=== PATIENT | female | born 1935 | race Caucasian/White ===

== ENCOUNTER 2017-07-29 18:20 | Inpatient (IN) ==
[2017-07-29 19:59] LABS: MANUAL DIFF NEEDED? NO
[2017-07-29 20:07] LABS: BASO% 0.5 % (0.0-0.8); EOS# 0.15 X1000 (0.0-0.7); EOS% 2.3 % (0.0-10.0); HEMATOCRIT 32.5 % (37.0-47.0); IMM GRAN# 0.02 X1000 (0.0-0.04); IMM GRAN% 0.3 % (0.0-0.5); LYMPH# 2.31 X1000 (1.2-3.4); LYMPH% 35.9 % (20.5-51.1); MCH 31.2 PG (27-31); MCHC 33.8 g/dL (33-37); MCV 92.1 FL (81-99); MONO# 0.48 X1000 (0.11-0.59); MONO% 7.5 % (1.7-9.3); MPV 10.2 FL (7.4-10.4); NEUT% 53.5 % (42.2-75.2); PLT 221 X1000 (130-400); RBC 3.53 XMIL (4.2-5.4)
--- NOTE | 2017-07-29 20:07 | PROVIDER DOCUMENTATION ---
HPI-Musculoskeletal Pain/Inj - GENERAL Chief Complaint: Fall Stated Complaint: FALL, LEFT HIP PAIN Time Seen by Provider: 07/29/17 19:33 Source: family - HX OF PRESENT ILLNESS-MUSKULOSKELTAL Nature of Presenting Problem: Earlier this afternoon, prior to arrival, pt was in a friends house helping them to take the trash out, pt tripped and fell to the ground landing on her left hip and the trash can landed on top of her. family attempted to get her up but was unable to do so, EMS was called. Pt c/o pain on her left hip only when she moves Quality of Pain: reports: aching Severity in ED: severe Onset/Duration: just prior to arrival Timing: still present Modifying Factors: improves with: movement Locality of Occurance: Other (friend's house) Similar Symptoms Previously?: No - FALL INJURY Location of Pain/Injury: reports: pelvis Pain Radiation: reports: no radiation Reason for Fall: reports: tripped Symptoms prior to fall:: reports: none Loss of Consciousness: no loss of consciousness Injury Associated Symptoms: reports: trouble walking Review of Systems - Adult - REVIEW OF SYSTEMS - ADULT ROS:: ROS per family Constitutional: reports: no symptoms reported Eyes: reports: no symptoms reported Ears, Nose, Mouth & Throat: reports: no symptoms reported Cardiovascular: reports: no symptoms reported Respiratory: reports: no symptoms reported Gastrointestinal: reports: no symptoms reported Genitourinary: reports: no symptoms reported Musculoskeletal: reports: see HPI Integumentary: reports: see HPI Neurological: reports: see HPI Psychiatric: reports: no symptoms reported Endocrine: reports: no symptoms reported Hematologic/Lymphatic: reports: no symptoms reported Allergic/Immunologic: reports: no symptoms reported All Other Systems: Reviewed and Negative Past History - Adult - PAST MEDICAL HISTORY-ADULT Review of Records: reports: Old Records Reviewed (raynaud's, HTN), Nursing Assessment Review Physical Exam-Injury Related - Physical Exam-Injury Related Initial Vital Signs Reviewed: Yes General Appearance: alert, mild distress Eyes: PERRL/EOMI, pink conjunctivae Head, Ears, Nose, Mouth & Throat: normocephalic/atraumatic Neck: non-tender, supple Respiratory: lungs clear, no respiratory distress Cardiovascular: regular rate, rhythm Peripheral Pulses: dorsalis-pedis (R): 2+, dorsalis-pedis (L): 2+ Abdominal Exam: non tender, soft Back Exam: other (difficult to assess, pt in pain, unable to move) Extremity: other (left leg internally rotated, shortened) Neurologic: grossly normal Psych/Mental Status: normal mood/affect - Glascow Coma Score Best Eye Response (Duncan): (4) open spontaneously Best Verbal Response (Pavithra): (5) oriented Best Motor Response (Duncan): (6) obeys commands Progress - PLAN OF CARE/RESULTS Progress/Plan/Lab Results: Orders Category Date Time Status Admit - [facility] Routine AdmDCTranf 07/29/17 21:38 Ordered Activity - Strict Bedrest ORDERED Care 07/29/17 21:38 Completed Apply Mechanical Device [QM] ORDERED Care 07/29/17 21:38 Completed Intake and Output-Strict ORDERED Care 07/29/17 21:38 Active Misc. NRSG Communication Order DIRECTED Care 07/29/17 21:38 Completed Z-Document. for Tele Applied ORDERED Care 07/29/17 21:38 Completed Physician/Provider Consults Routine Cons 07/30/17 08:00 Ordered Heart Healthy Diet Diet 07/29/17 21:25 Completed NPO Diet 07/30/17 00:01 Completed CHEST-1 VIEW [RAD] Stat Exams 07/29/17 19:45 Completed XRAY PELVIS W/HIP 2-3VW LT [RAD] Stat Exams 07/29/17 19:22 Completed BASIC METABOLIC PANEL [CHEM] Routine Lab 07/30/17 05:27 Completed CBC WITH DIFF [HEME] Routine Lab 07/30/17 05:27 Completed CBC WITH DIFF [HEME] Stat Lab 07/29/17 19:05 Completed CMP [COMPREHENSIVE METABOLIC PANEL] [CHEM] Stat Lab 07/29/17 19:05 Completed PROTIME WITH INR [COAG] Stat Lab 07/29/17 19:05 Completed TSH Routine Lab 07/30/17 05:27 Completed TYPE & SCREEN [BBK] Stat Lab 07/29/17 19:05 Completed 0.9% Sodium Chloride Inj [Ns] 1,000 ml Med 07/29/17 21:38 Discontinued IV 80 mls/hr Acetaminophen [Tylenol] Med 07/29/17 21:38 Discontinued 650 mg PO Q6H PRN PRN Aspirin Med 07/31/17 09:00 Discontinued 81 mg PO DAILY Calcium Carbonate [Caltrate 600] Med 07/30/17 09:00 Active 600 mg PO DAILY Hydromorphone [Dilaudid] Med 07/29/17 21:43 Discontinued 0.5 mg IV Q4H PRN PRN Morphine Med 07/29/17 21:38 Discontinued 2 mg IV Q3-4H PRN PRN Multivit,Fe,Ca,FA & Min [Thera M Plus] Med 07/30/17 09:00 Active 1 each PO DAILY Harrold-3 Fatty Acids [Fish Oil Concentrate] Med 07/30/17 09:00 Active 1,000 mg PO DAILY Ondansetron [Zofran] Med 07/29/17 21:38 Discontinued 4 mg IV Q4H PRN PRN Pantoprazole [Protonix] Med 07/29/17 21:38 Discontinued 40 mg IV Q24H Promethazine [Phenergan] Med 07/29/17 21:38 Active 25 mg PO Q6H PRN PRN Sodium Chloride 0.9% Med 07/29/17 21:38 Discontinued 10 ml INJ DIRECTED Transfer/Admit Order [TRANSFER] Routine Transfer 07/29/17 21:20 Completed Transfer/Admit Order [TRANSFER] Routine Transfer 07/29/17 21:43 Completed Result Diagrams: 08/03/17 05:32 08/03/17 05:32 - XRAY 1 XRAY Study: Pelvis (left oblique proximal fracture) - CONSULTS/PCP/HOSPITALIST Notification #1 *Consult/PCP/Hospitalist*: Dr. Loza - orthopedics Consult Disposition: other (admit to hospitalist, will see pt as a consult) Departure - Departure Date of Disposition Decision: 07/29/17 Time of Disposition Decision: 20:51 DIAGNOSIS: Hip fracture Qualifiers: Encounter type: initial encounter Fracture type: closed Laterality: left Qualified Code(s): S72.002A - Fracture of unspecified part of neck of left femur , initial encounter for closed fracture Disposition: ADMITTED INPATIENT 09 Certified Medical Emergency: Emergent Condition: Stable - Critical Care Note This patient required my direct & personal management of CC.: No Attestation - Physician/ PARTHA Attestation Patient care was provided by Advanced Practice Provider:: No The physician spent face to face time with patient:: Yes Advanced Practice Provider documentation review:: Supervising physician onsite and consulted in the evaluation and care of this patient. The physician did have a face to face encounter with the patient.
[2017-07-29 20:11] LABS: INR 0.97; PROTIME 10.2 Seconds (9.2-11.7)
--- NOTE | 2017-07-29 20:27 | Diag Imaging Result Doc PS360 ---
EXAM: CHEST-1 VIEW HISTORY: fall TECHNIQUE: Supine AP COMPARISON: 12/28/2012 FINDINGS: The lungs are well expanded. The heart is not enlarged. The vessels are not distended. There are no infiltrates. No effusion identified. No contusions. No pneumothoraces. There are several old rib fractures. IMPRESSION: No injury identified. Electronically signed by Dawson Tripp 07/29/2017 8:25 PM
--- NOTE | 2017-07-29 20:32 | Diag Imaging Result Doc PS360 ---
EXAM: XRAY PELVIS W/HIP 2-3VW LT HISTORY: FALL WITH LEFT HIP DEFORMITY TECHNIQUE: Two views COMPARISON: None. FINDINGS: There is an oblique fracture through the proximal femoral shaft. There is angulation of at least 20 degrees. The lesser trochanter is avulsed. Femoral head remains in the acetabulum. IMPRESSION: Fracture to the proximal left femur. Electronically signed by Dawson Tripp 07/29/2017 8:30 PM
[2017-07-29 20:39] LABS: AGAP 11; ALBUMIN 3.9 g/dL (3.5-5.0); ALKALINE PHOSPHATASE 67 U/L (32-104); BUN 15 mg/dL (8-22); CHLORIDE 95 mmol/L (98-107); COSMO 262; GOT 26 U/L (10-30); GPT 18 U/L (10-36); SODIUM 130 mmol/L (136-145); TCO2 24 mmol/L (25-35); TOTAL BILIRUBIN 0.39 mg/dL (0.20-1.00); TOTAL PROTEIN 6.9 g/dL (6.3-8.3)
[2017-07-29] MEDS ORDERED: TYLENOL PO PRN (21:38)
[2017-07-29] MEDS ORDERED: PHENERGAN PO PRN (21:38)
[2017-07-29] MEDS ORDERED: MORPHINE IV PRN (21:38)
[2017-07-29] MEDS ORDERED: ZOFRAN IV PRN (21:38)
[2017-07-29] MEDS ORDERED: DILAUDID IV PRN (21:43)
[2017-07-29] MEDS: PROTONIX IV SCH (23:59)
[2017-07-29] MEDS: NS 1,000 ML IV SCH (23:59)
--- NOTE | 2017-07-30 00:42 | HISTORY AND PHYSICAL ---
PRIMARY CARE PHYSICIAN: CHIEF COMPLAINT: Fall. HISTORY OF PRESENTING ILLNESS: This 81-year-old female with a history of hypertension apparently was trying to pull the trash can from the driveway when all of a sudden she somehow tripped and landed on the concrete. She developed moderate amount of pain in the left hip and subsequently had come to the emergency department. In the ER, she was evaluated. She had imaging done. As per ER physician, there is a left femur fracture. The patient subsequently will need admission for further evaluation and management. At the time of my examination, the patient had denied any headache, fever, chills, chest pain, shortness of breath, hemoptysis, melena or any weight changes. Complained of left hip pain. PAST MEDICAL HISTORY: Includes hypertension. PAST SURGICAL HISTORY: Colon surgery, appendectomy, cataract surgery. ALLERGIES: No known drug allergies. CURRENT MEDICATIONS: As listed in the medication reconciliation sheet. SOCIAL HISTORY: She denies any history of smoking, alcohol or illicit drug use. She was fairly independent. FAMILY HISTORY: No history of coronary disease. REVIEW OF SYSTEMS: Twelve point review of systems as listed in HPI. Other systems negative. PHYSICAL EXAMINATION: GENERAL: Cooperative, friendly female. She is resting comfortably now. VITAL SIGNS: Temperature 97.8 degrees, pulse 59, respirations 16, blood pressure 183/56. HEENT: Extraocular movements intact. PERRLA. NECK: No masses. CHEST: Clear to auscultation. CARDIOVASCULAR: Regular rate and rhythm. S1, S2. ABDOMEN: Soft. Positive bowel sounds. EXTREMITIES: Left hip tenderness. NEUROLOGIC: She is awake, alert, oriented x3. GENITOURINARY: No bladder distention. SKIN: Warm. LABORATORIES AND STUDIES: WBC 6.44, hemoglobin 11.1, hematocrit 32.5, platelets 221,000. Sodium 130, potassium 4.0, chloride 95, CO2 is 24, BUN is 15, creatinine 0.7, glucose is 104. ASSESSMENT: An 81-year-old, elderly female with a history of hypertension who apparently fell while trying to move her trash can onto the driveway. She landed on the left hip and developed moderate amount of pain. She was evaluated in the ER. She had imaging done which did show a left femur fracture, as per emergency room physician. Subsequently, she will need admission for further management. 1. Status post mechanical fall. 2. Left hip fracture. 3. Hypertension. PLAN: 1. We will admit patient to medical floor with telemetry. 2. We will keep patient NPO. 3. We will consult Orthopedics for further evaluation of left hip fracture. 4. We will monitor blood pressure. Resume antihypertensive agents. 5. Put patient on DVT prophylaxis with SCD. 6. We will continue to follow and reassess. cc: Desean Godoy MD MTDD
[2017-07-30 05:44] LABS: MANUAL DIFF NEEDED? NO
[2017-07-30 05:53] LABS: BASO% 0.1 % (0.0-0.8); HEMATOCRIT 24.9 % (37.0-47.0); HEMOGLOBIN 8.3 g/dL (12.0-16.0); IMM GRAN# 0.02 X1000 (0.0-0.04); IMM GRAN% 0.2 % (0.0-0.5); LYMPH# 0.89 X1000 (1.2-3.4); LYMPH% 10.4 % (20.5-51.1); MCH 30.9 PG (27-31); MCHC 33.3 g/dL (33-37); MCV 92.6 FL (81-99); MONO# 0.45 X1000 (0.11-0.59); MONO% 5.3 % (1.7-9.3); MPV 9.7 FL (7.4-10.4); PLT 203 X1000 (130-400); RBC 2.69 XMIL (4.2-5.4)
[2017-07-30 06:09] LABS: AGAP 12; BUN 13 mg/dL (8-22); CALCIUM 8.1 mg/dL (8.8-10.2); CHLORIDE 98 mmol/L (98-107); COSMO 269; POTASSIUM 4.9 mmol/L (3.5-5.1); SODIUM 133 mmol/L (136-145); TCO2 23 mmol/L (25-35)
[2017-07-30] MEDS ORDERED: KEFZOL 1 GM/D5W 1 GM/50 ML IVPB IV ONE (08:29)
[2017-07-30] MEDS: CALTRATE 600 PO SCH (09:11)
[2017-07-30] MEDS: THERA M PLUS PO SCH (09:11)
[2017-07-30] MEDS: FISH OIL CONCENTRATE PO SCH (09:11)
--- NOTE | 2017-07-30 10:30 | CONSULTATION ---
DATE OF CONSULTATION: 07/30/2017 CHIEF COMPLAINT: Left hip injury. HISTORY OF PRESENT ILLNESS: Keisha Scott is an 81-year-old female who was helping a neighbor move their garbage can when she fell and injured her left hip. She complains of left hip pain and inability to ambulate. She was seen in the emergency room where she was diagnosed with a femur fracture, and I was asked to see her in Orthopedic consultation. She is normally a community ambulator. PHYSICAL EXAMINATION: A well-developed, well-nourished female. She is alert and oriented, cooperative with exam. Exam of her leg reveals pain with any range of motion, but it is otherwise neurovascular intact. DIAGNOSTIC DATA: X-rays reveal a subtrochanteric reverse obliquity fracture with a butterfly fragment laterally. For past medical history, past surgical history, medicines and allergies, see admission history and physical. ASSESSMENT: Left subtrochanteric femur fracture. PLAN: We will plan on proceeding with a trochanteric fixation nail. I have discussed with her and her family the risks, benefits and alternatives to the surgery including but not limited to bleeding, nerve damage, infection, risks from anesthesia, hardware failure, malunion, nonunion, loss of limb or life up to and including . They voiced their understanding. All questions were answered. No guarantees were given. They request to proceed as planned. We will schedule surgery this afternoon. cc: MD Connor Martin MD [facility]
[2017-07-30] MEDS ORDERED: DILAUDID IV PRN (11:59)
--- NOTE | 2017-07-30 13:07 | PROGRESS NOTE ---
DATE: 07/30/2017 SUBJECTIVE: The patient states her pain is well controlled. Consultation with Dr. Loza has already been undertaken and he plans a femoral nail later this afternoon or this evening. I discussed rehab placement with the patient and she seemed to be amenable to this. OBJECTIVE: Vital signs: 97.9, 66, 14, 115/60, 97% saturated on room air. General: The patient is alert, oriented, conversive, and appropriate. Lungs: Clear. Cardiovascular: Regular at 72 beats per minute at the time of my examination. There is no evidence of JVD in the recumbent position. There is no peripheral edema. LABORATORY: A noted a drop in the hemoglobin to 8.3 overnight following the trauma. We will continue to monitor this on a regular basis. The remainder of the patient's lab work appeared to be appropriate. ASSESSMENT AND PLAN: 1. Patient is scheduled for surgery later this afternoon or this evening. I suspect that we will proceed with rehabilitation placement next week and I have written for a consultation in that regard. 2. We will continue to monitor the patient's hemoglobin and hematocrit postoperatively and transfuse and/or treat as appropriate. cc: Connor Blunt MD
[2017-07-30] MEDS: NS 1,000 ML IV SCH (14:02)
[2017-07-30] MEDS ORDERED: XYLOCAINE-MPF 2% ONE (15:21)
[2017-07-30] MEDS ORDERED: FENTANYL ONE (15:21)
[2017-07-30] MEDS ORDERED: DIPRIVAN 1% ONE (15:21)
[2017-07-30] MEDS ORDERED: NEOSPORIN G.U. IRRIGANT ONE (15:24)
[2017-07-30] MEDS ORDERED: KEFZOL 1 GM/D5W 1 GM/50 ML IVPB ONE (15:37)
[2017-07-30] MEDS ORDERED: EPHEDRINE ONE (16:18)
[2017-07-30] MEDS ORDERED: HALDOL IV PRN (17:58)
[2017-07-30] MEDS ORDERED: OXY IR PO PRN (17:58)
[2017-07-30] MEDS ORDERED: MORPHINE IV PRN (17:58)
[2017-07-30] MEDS ORDERED: MILK OF MAGNESIA PO PRN (17:58)
[2017-07-30] MEDS ORDERED: ZOFRAN IV PRN (17:58)
[2017-07-30] MEDS ORDERED: NS 1,000 ML IV SCH (18:00)
[2017-07-30 18:13] LABS: HEMATOCRIT 19.2 % (37.0-47.0); HEMOGLOBIN 6.3 g/dL (12.0-16.0)
--- NOTE | 2017-07-30 18:54 | OPERATIVE NOTE ---
PROCEDURE DATE: 07/30/2017 PREOPERATIVE DIAGNOSIS: Left subtrochanteric/intertrochanteric hip fracture/proximal femur fracture. POSTOP DIAGNOSIS: Left subtrochanteric/intertrochanteric hip fracture/proximal femur fracture. PROCEDURE: Closed reduction, intramedullary nailing of left subtrochanteric intertrochanteric femur fracture with a long trochanteric fixation nail size 380 with 100 mm helical blade proximally, a 46 and 52 mm locking screws distally. ANESTHESIA: General. SURGEON: Ruben Loza MD. PRODUCTION ILLUSTRATOR: Cherrie Caceres PA-C, who was present throughout the case was critical for assisting with reduction of the fracture, placement of the hardware and wound closure. Her assistance greatly reduced the anesthesia time and length of the case and improved patient safety. BLOOD LOSS: 200 mL. DESCRIPTION OF PROCEDURE: The patient was brought to the operative suite and placed in supine position. After successful administration of general anesthesia, the patient placed on the OSI table in the usual position for left hip. The left hip was reduced under fluoroscopy. Unfortunately there were multiple fragments and unable to reduce it just with the usual techniques. A longitudinal incision made proximal tip the greater trochanter after prepping and draping the left leg and then a ball-tipped guidepin was placed in the proximal portion of the femur in the center of the femoral canal on AP and lateral images. This was reamed with a solid cannulated reamer and then using the flexible reduction device the proximal fragment was reduced to the distal fragment. The proximal 2 fragments were still kicked up anteriorly due to the tension on the iliopsoas tendon. Using a stab incision anteriorly these were pushed down then reduced with a drill on a ball pin handle and once these were reduced a ball-tipped guidepin was placed across the fracture site. Then the canal was serially reamed to 13 mm. It was measured at 380 mm. The 380 mm nail was then driven into place and then through a stab incision laterally a guidepin was placed in center of the femoral head on AP and lateral images. It was measured to 100 mm. It was tracked, the helical blade was reamed and the helical blade was driven into place and it was locked proximally. Then the proximal guide was removed. Excellent reduction the fracture and placement of hardware was obtained on AP and lateral images. Attention was then directed to the distal locking screws. Through using the perfect circles technique through stab incisions these were drilled and measured at 46 and 52 mm. These were driven into place. Excellent placement of the hardware and reduction of fracture was obtained on AP and lateral images. The wounds were copiously irrigated. Skin edge approximated with 2-0 Vicryl. Skin was closed with skin raz and a sterile dressing was applied. The patient tolerated the procedure well without complication. At the end the procedure, all counts correct x2. The patient transferred to the recovery room in stable condition. cc: MD Connor Martin MD
[2017-07-30] MEDS: TYLENOL PO SCH (19:31)
[2017-07-30] MEDS: SODIUM CHLORIDE 0.9% INJ SCH (19:58)
[2017-07-30] MEDS: PERIDEX MT SCH ×2 (19:58→20:05)
[2017-07-30] MEDS: COLACE PO SCH ×2 (19:58→20:05)
[2017-07-30] MEDS: PROTONIX IV SCH ×2 (19:58→22:43)
[2017-07-30 20:23] LABS: AGAP 13; BUN 13 mg/dL (8-22); CALCIUM 7.9 mg/dL (8.8-10.2); CHLORIDE 99 mmol/L (98-107); COSMO 274; POTASSIUM 4.2 mmol/L (3.5-5.1); SODIUM 135 mmol/L (136-145); TCO2 23 mmol/L (25-35)
[2017-07-30] MEDS: KEFZOL 1 GM/D5W 1 GM/50 ML IVPB IV SCH (22:42)
[2017-07-31] MEDS: TYLENOL PO SCH ×4 (02:09→21:56)
[2017-07-31] MEDS: KEFZOL 1 GM/D5W 1 GM/50 ML IVPB IV SCH ×2 (05:59→16:39)
[2017-07-31 06:25] LABS: HEMATOCRIT 27.9 % (37.0-47.0); HEMOGLOBIN 9.7 g/dL (12.0-16.0)
[2017-07-31] MEDS: THERA M PLUS PO SCH (08:20)
[2017-07-31] MEDS: FISH OIL CONCENTRATE PO SCH (08:20)
[2017-07-31] MEDS: CALTRATE 600 PO SCH (08:21)
[2017-07-31] MEDS: ASPIRIN PO SCH (08:21)
[2017-07-31] MEDS: FERROUS SULFATE PO SCH (08:21)
[2017-07-31] MEDS: PERIDEX MT SCH ×2 (08:22→21:53)
[2017-07-31] MEDS: COLACE PO SCH (21:53)
[2017-07-31] MEDS: PROTONIX IV SCH (21:53)
[2017-07-31] MEDS: SODIUM CHLORIDE 0.9% INJ SCH (21:54)
[2017-08-01] MEDS: TYLENOL PO SCH ×3 (02:51→18:29)
[2017-08-01 06:58] LABS: HEMATOCRIT 24.6 % (37.0-47.0); HEMOGLOBIN 8.1 g/dL (12.0-16.0)
[2017-08-01] MEDS: ASPIRIN PO SCH (09:38)
[2017-08-01] MEDS: CALTRATE 600 PO SCH (09:39)
[2017-08-01] MEDS: THERA M PLUS PO SCH (09:39)
[2017-08-01] MEDS: FISH OIL CONCENTRATE PO SCH (09:39)
[2017-08-01] MEDS: FERROUS SULFATE PO SCH (09:39)
[2017-08-01] MEDS: PERIDEX MT SCH ×2 (09:39→20:59)
[2017-08-01] MEDS: COLACE PO SCH (20:59)
[2017-08-01] MEDS: SODIUM CHLORIDE 0.9% INJ SCH (20:59)
[2017-08-01] MEDS: PROTONIX IV SCH (20:59)
[2017-08-02] MEDS: TYLENOL PO SCH ×4 (04:12→17:21)
[2017-08-02 06:24] LABS: HEMATOCRIT 23.5 % (37.0-47.0); HEMOGLOBIN 7.8 g/dL (12.0-16.0)
[2017-08-02] MEDS: PERIDEX MT SCH ×2 (08:30→21:55)
[2017-08-02] MEDS: CALTRATE 600 PO SCH (08:30)
[2017-08-02] MEDS: FISH OIL CONCENTRATE PO SCH (08:30)
[2017-08-02] MEDS: THERA M PLUS PO SCH (08:30)
[2017-08-02] MEDS: FERROUS SULFATE PO SCH (08:30)
--- NOTE | 2017-08-02 12:53 | PROGRESS NOTE ---
DATE: 08/02/2017 SUBJECTIVE: The patient states that she is very weak and feels very unsteady when they try and stand her. She has been trying to eat well and has been trying to participate in physical therapy. She states that her left leg is swollen and still painful. OBJECTIVE: Vital Signs: 98.8, 80, 17, 125/49, 97% saturated on room air. General: The patient was sitting on the edge of the bed when I came in. She does not appear breathless. We spoke at length and she seemed to be lucid and appropriate. Lungs: Clear to auscultation. Cardiovascular: Regular. Extremities: The patient's left thigh and hip are markedly swollen. They are not terribly tender to palpation. She does have difficulty moving that leg and hip. LABORATORY: Hemoglobin 7.8, hematocrit 23.5. ASSESSMENT AND PLAN: 1. The patient's femoral fracture has been repaired with the femoral nail. I think she lost a fair amount of blood into that hip and leg and has been slow to recover from that standpoint. Her hemoglobin was 7.8 this morning. It is not a marked change from the 1 drawn yesterday. We will hold off on transfusion at the present time. I am going to discontinue her aspirin. 2. I discussed with the patient the need for inpatient rehabilitation and because of her weakness I think she is more resigned to that fact today. I told her that it may take weeks to do reabsorb all of the blood spilled into the hip and leg as a result of the fracture. I also reassured her that her leg was stable and she could stand on it. She was encouraged to work hard with physical therapy and to improve her nutrition. She seemed to be in agreement with this. cc: Connor Blunt MD
[2017-08-02] MEDS: PROTONIX PO SCH (21:54)
[2017-08-02] MEDS: COLACE PO SCH (21:54)
[2017-08-03] MEDS: TYLENOL PO SCH ×3 (01:49→18:05)
[2017-08-03 06:00] LABS: MANUAL DIFF NEEDED? NO
[2017-08-03 06:15] LABS: BASO% 0.6 % (0.0-0.8); EOS# 0.22 X1000 (0.0-0.7); EOS% 3.1 % (0.0-10.0); HEMATOCRIT 23.7 % (37.0-47.0); HEMOGLOBIN 7.8 g/dL (12.0-16.0); IMM GRAN# 0.03 X1000 (0.0-0.04); IMM GRAN% 0.4 % (0.0-0.5); LYMPH# 2.09 X1000 (1.2-3.4); MCH 30.7 PG (27-31); MCHC 32.9 g/dL (33-37); MCV 93.3 FL (81-99); MONO# 0.65 X1000 (0.11-0.59); MPV 9.6 FL (7.4-10.4); NEUT% 57.9 % (42.2-75.2); PLT 213 X1000 (130-400); RBC 2.54 XMIL (4.2-5.4)
[2017-08-03 06:35] LABS: AGAP 10; ALBUMIN 2.8 g/dL (3.5-5.0); ALKALINE PHOSPHATASE 58 U/L (32-104); BUN 13 mg/dL (8-22); CALCIUM 7.9 mg/dL (8.8-10.2); CHLORIDE 101 mmol/L (98-107); COSMO 273; GOT 36 U/L (10-30); GPT 20 U/L (10-36); POTASSIUM 4.6 mmol/L (3.5-5.1); SODIUM 136 mmol/L (136-145); TCO2 25 mmol/L (25-35); TOTAL BILIRUBIN 0.84 mg/dL (0.20-1.00); TOTAL PROTEIN 5.2 g/dL (6.3-8.3)
[2017-08-03 07:36] LABS: RETIC% 3.68 % (0.8-2.1)
[2017-08-03 07:51] LABS: IRON SATURATION 23 %; TIBC 212 ug/dL; TOTAL IRON 49 ug/dL (49-151); UNBOUND IRON 163 ug/dL (112-346)
[2017-08-03] MEDS: FISH OIL CONCENTRATE PO SCH (08:23)
[2017-08-03] MEDS: THERA M PLUS PO SCH (08:23)
[2017-08-03] MEDS: FERROUS SULFATE PO SCH (08:23)
[2017-08-03] MEDS: PERIDEX MT SCH ×2 (08:23→22:25)
[2017-08-03] MEDS: CALTRATE 600 PO SCH (08:23)
--- NOTE | 2017-08-03 11:57 | PROGRESS NOTE ---
DATE: 08/03/2017 SUBJECTIVE: The patient states that she is feeling much better today. She feels a bit stronger and has been moving her leg in the bed. She states she is ready to begin actual physical therapy today. Up until today, she has been too weak and/or dizzy to really participate to meaningful degree. VITAL SIGNS: 97.6, 81, 18, 141/49. OBJECTIVE: General: She is a well-developed, well-nourished, white female, in no acute distress. Lungs: Clear to auscultation. Cardiovascular: Regular. Extremities: Left upper leg and hip are still swollen and somewhat tense. She is tender on that side. Neurologic: The patient is alert, oriented, conversive, and appropriate. ASSESSMENT AND PLAN: 1. The patient's anemia has stabilized. Her hemoglobin has stayed stable overnight. Reticulocyte count is up appropriately. She has all the appropriate substrate in the form of B12, folate, and iron in order to produce more blood cells, and I would expect an uptake in her hematocrit over the next couple days. We will monitor this as necessary. 2. The patient will begin physical therapy in [place]. 3. We will likely sign retirement orders and try and get her to rehab in the next day or two. cc: Connor Blunt MD
--- NOTE | 2017-08-03 13:04 | PROGRESS NOTE ---
DATE: 08/03/2017 SUBJECTIVE: Keisha Scott is an 81-year-old female who is postoperative from a left trochanteric fixation nail. She states that she is feeling much better and stronger and Dr. Blunt thinks she may go to rehab in the next few days. OBJECTIVE: General: She is a well-developed, well-nourished female. She is alert, oriented, and cooperative exam. Extremities: Her dressing is clean, dry, intact. Her leg is neurovascularly intact. ASSESSMENT: Stable left trochanteric fixation nail. PLAN: We will continue with physical therapy. She will likely go to rehab later in the week. cc: MD Connor Martin MD
[2017-08-03] MEDS: PROTONIX PO SCH (22:24)
[2017-08-03] MEDS: COLACE PO SCH (22:25)
[2017-08-04] MEDS: TYLENOL PO SCH ×3 (08:09→17:14)
[2017-08-04] MEDS: PERIDEX MT SCH ×2 (08:59→20:15)
[2017-08-04] MEDS: CALTRATE 600 PO SCH (08:59)
[2017-08-04] MEDS: THERA M PLUS PO SCH (08:59)
[2017-08-04] MEDS: FISH OIL CONCENTRATE PO SCH (08:59)
[2017-08-04] MEDS: FERROUS SULFATE PO SCH (08:59)
[2017-08-04] MEDS: PROTONIX PO SCH (20:15)
[2017-08-04] MEDS: COLACE PO SCH (20:16)
[2017-08-05] MEDS: TYLENOL PO SCH ×2 (02:31→09:13)
[2017-08-05 07:57] VITALS: BP 118/56
[2017-08-05] MEDS: THERA M PLUS PO SCH (09:12)
[2017-08-05] MEDS: FISH OIL CONCENTRATE PO SCH (09:12)
[2017-08-05] MEDS: FERROUS SULFATE PO SCH (09:12)
[2017-08-05] MEDS: CALTRATE 600 PO SCH (09:13)
[2017-08-05] MEDS: PERIDEX MT SCH (09:13)
--- NOTE | 2017-08-05 10:23 | DISCHARGE SUMMARY ---
ADMISSION DATE: 07/29/2017 DISCHARGE DATE: 08/05/2017 DISCHARGE DIAGNOSES: 1. Left femur fracture secondary to a fall. 2. Postoperative anemia due to hemorrhage. 3. Weakness. CONSULTATIONS: Ruben Loza MD. OPERATIVE PROCEDURE: Left femoral nail procedure. HOSPITAL COURSE: An 81-year-old white female fell at home fracturing her left leg. She brought into the hospital, and Orthopedics was consulted. They performed a femoral nail procedure, and as described in the operative notes, it was very difficult procedure. The patient had a fair amount of bleeding into the tissue and was profoundly anemic postoperatively. We did not require transfusion during the time that I was taking care of her, but we did monitor her levels and they stabilized after a few days. We checked all of her substrate for blood formation. She seemed to have adequate vitamin and iron stores. Her reticulocyte count was appropriately elevated. The patient's strength gradually increased, and her mobility was getting better at the time of discharge from the hospital. There was somewhat of a delay in getting her to rehab because of her profound weakness, and we were fearful that sending her to that situation with inability to perform her physical therapy would be a waste. We also want to monitor that hemoglobin a little more closely. At time of discharge, she was stable and eager to go. She was performing reasonably well with physical therapy, and is a good candidate for rehabilitation. The patient is sent home on all of the medications she took at home prior to admission. Monitoring for blood pressure, and hemoglobin and hematocrit are in the discharge orders. Removal of staple and/or sutures should take place in 7-10 days prior to discharge from the hospital. cc: Connor Blunt MD
== END 2017-08-05 15:36 ==
LOC: ED 18:20 → 4N 22:41 → SUATTDRO 22:41
PROVIDERS: ADMIT Internal Medicine; ATTEND Internal Medicine